=== PATIENT | female | born 1995 | race Caucasian/White ===

== ENCOUNTER 2016-11-08 19:10 | Emergency (ER) | payer BC ==
[2016-11-08 19:47] LABS: #Eosinphils 0.1 thou/uL (0.0-0.7); #Lymphocytes 3.1 thou/uL (1.20-3.40); #Monocytes 0.8 thou/uL (0.11-0.59); #Neutrophils 3.6 thou/uL (1.40-6.50); %Basophils 0.3 % (0.0-1.0); %Eosinophils 1.7 % (0.0-10.0); %Lymphocytes 40.6 % (28.0-48.0); %Monocytes 10.2 % (0.0-4.0); Hematocrit 43.1 % (36.0-47.0); Mean Platelet Volume 6.8 fL (7.4-10.4); Red Blood Cell (RBC) Count 4.82 mill/uL (4.00-5.20); White Blood Cell (WBC) Count 7.6 thou/uL (4.8-10.8)
[2016-11-08 20:13] LABS: ALT (SGPT) 12 U/L (8-55); AST (SGOT) 14 U/L (5-34); Alkaline Phosphatase 114 U/L (40-150); Anion Gap 14 mmol/L (10-20); BUN (Urea Nitrogen) 6 mg/dL (7.0-18.7); Bilirubin, Total 0.3 mg/dL (0.2-1.2); CK (CPK) 62 U/L (29-168); Calc. Creatinine Clearance 0 mL/min (70-130); Calcium 9.5 mg/dL (7.8-10.44); Carbon Dioxide 24 mmol/L (22-29); Chloride 106 mmol/L (98-107); Estimated GFR-MDRD Greater than 90; Globulin 3.1 g/dL (2.4-3.5); Protein, Total 7.1 g/dL (6.0-8.3)
[2016-11-08 20:17] LABS: Troponin I Less than 0.010 ng/mL (< 0.028)
[2016-11-08] MEDS ORDERED: Ibuprofen 800 MG TAB ONE (20:32)
--- NOTE | 2016-11-08 21:23 | RAD ---
UPRIGHT PORTABLE CHEST ONE VIEW: 11/08/16 HISTORY: 21-year-old female with chest pain. COMPARISON: 12/21/15 HISTORY: Monitor leads overlie the chest. Heart size is within normal limits. The lungs are clear. IMPRESSION: No acute intrathoracic disease. Stable from prior study. POS: [facility]
== END 2016-11-08 20:55 | disposition home or self-care (01) ==
LOC: ERS 19:10
DX: M94.0 Chondrocostal junction syndrome [Tietze] (principal); F41.9 Anxiety disorder, unspecified; Z79.899 Other long term (current) drug therapy
CPT/HCPCS: 36415; 71010; 80053; 82553; 84484; 84702; 85025; 85379; 85652; 86140; 93005; 94760

== ENCOUNTER 2017-01-03 18:28 | Emergency (ER) | payer BC ==
[2017-01-03] MEDS ORDERED: Ketorolac Tromethamine 60 MG/2 ML VIAL ONE (20:16)
--- NOTE | 2017-01-03 21:22 | RAD ---
CHEST ONE VIEW 01/04/17 HISTORY: Chest soreness. COMPARISON: Chest one view 11/08/16. FINDINGS: the lungs are clear. No pneumothorax or effusion. The cardiac silhouette and mediastinal contours are within normal limits. IMPRESSION: No acute intrathoracic abnormality. POS: [facility]
== END 2017-01-03 20:25 | disposition home or self-care (01) ==
LOC: ERS 18:28
DX: R07.89 Other chest pain (principal); F41.9 Anxiety disorder, unspecified
CPT/HCPCS: 71010; 93005; 96372; J1885

== ENCOUNTER 2017-01-10 15:17 | Outpatient (CLI) | payer BC ==
--- NOTE | 2017-01-10 18:39 | CT ---
CT LUMBAR SPINE NONCONTRAST 01/10/17 HISTORY: 21-year-old female with chronic low back pain for four to five years. "Lumbar radiculopathy, M54.16". COMPARISON: None. FINDINGS: T12 ribs are hypoplastic. Inferior to that, there are five nonribbearing, standard lumbar type verteb itz. Vertebral body heights are maintained. No high grade disc space narrowing at any level. No centr al spinal canal stenosis or neural foraminal stenosis at any level. No spondylolysis, spondylolisthes is, or scoliosis. No fracture. No osteoblastic or osteolytic lesion. Perivertebral spaces are unremar kable. No moderate sized or large focal disc herniation. IMPRESSION: Essentially normal. POS: [facility]
== END 2017-01-10 15:18 | disposition home or self-care (01) ==
LOC: TBSIIMAG 15:17
PROVIDERS: ATTEND Neurological Surgery
DX: M54.16 Radiculopathy, lumbar region (principal)
CPT/HCPCS: 72131